=== PATIENT | female | born 1960 | race African-American/Black ===

== ENCOUNTER → 2016-11-22 | Outpatient (CLI) | payer OTHER ==
--- NOTE | 2016-11-22 11:06 | RAD ---
DATE: 11/22/2016 EXAM: DIGITAL SCREEN RT W/CAD HISTORY: Screening. The history of left breast malignancy with subsequent mastectomy is noted COMPARISON: 05/13/2015 This study was interpreted with the benefit of Computerized Aided Detection (CAD). FINDINGS: Breast Density: SCATTERED The breast parenchyma shows scattered fibroglandular densities. Breast parenchyma level B. There are areas of increased density in the periareolar position of the breast. This may reflect summation artifact. A cone compression imaging, an ML view and rolled cc views are suggested. No suspect calcifications are seen. Occasional lymph nodes are noted in the axilla. IMPRESSION: Areas of increased density in the right breast may reflect summation artifact. Additional imaging suggested as outlined BI-RADS CATEGORY: 0 INCOMPLETE: NEED ADDITIONAL IMAGING EVAULATION AND/OR PRIOR MAMMOGRAMS FOR COMPARISON RECOMMENDED FOLLOW-UP: ADD ADDITIONAL IMAGING PQRS compliance statement: Patient information was entered into a reminder system with a target due date soon for the next mammogram. Mammography is a sensitive method for finding small breast cancers, but it does not detect them all and is not a substitute for careful clinical examination. A negative mammogram does not negate a clinically suspicious finding and should not result in delay in biopsying a clinically suspicious abnormality. "Our facility is accredited by the [employer] Mammography [employer]."
== END | disposition home or self-care (01) ==
LOC: MAMMO 07:52
PROVIDERS: ATTEND Nurse Practitioner
DX: Z12.31 Encounter for screening mammogram for malignant neoplasm of breast (principal)
CPT/HCPCS: G0202; 77067

== ENCOUNTER → 2016-11-27 | Outpatient (CLI) | payer OTHER ==
--- NOTE | 2016-11-27 16:18 | RAD ---
DATE: 11/27/2016 EXAM: DIGITAL DIAGNOSTIC RT, BREAST RIGHT HISTORY: Possible abnormality seen on screening COMPARISON: Screening examination 5 days earlier FINDINGS: Breast Density: SCATTERED The breast parenchyma shows scattered fibroglandular densities. Breast parenchyma level B. Multiple additional images were obtained including cone compression views and an ML view and rolled CC views. On the additional images no convincing mass or abnormality is seen. Ultrasound targeted to the periareolar position of the breast was performed. No abnormality is seen IMPRESSION: Probable benign findings. A follow-up mammographic examination of the right breast is suggested in 6 months to further document stability BI-RADS CATEGORY: 3 PROBABLE BENIGN FINDING(S-SHORT INTERVAL FOLLOW-UP SUGGESTED RECOMMENDED FOLLOW-UP: 6M 6 MONTH FOLLOW-UP PQRS compliance statement: Patient information was entered into a reminder system with a target due date 05/28/2017 for the next mammogram. Mammography is a sensitive method for finding small breast cancers, but it does not detect them all and is not a substitute for careful clinical examination. A negative mammogram does not negate a clinically suspicious finding and should not result in delay in biopsying a clinically suspicious abnormality. "Our facility is accredited by the [employer] Mammography [employer]."
== END | disposition home or self-care (01) ==
LOC: MAMMO 14:31
PROVIDERS: ATTEND Nurse Practitioner
DX: R92.8 Other abnormal and inconclusive findings on diagnostic imaging of breast (principal)
CPT/HCPCS: 76641; G0206; 77065

== ENCOUNTER → 2017-05-09 | Outpatient (CLI) | payer OTHER ==
--- NOTE | 2017-05-09 14:44 | RAD ---
DATE: 05/09/2017 EXAM: DIGITAL DIAGNOSTIC RT HISTORY: 6 month follow-up for right breast abnormality seen on previous study. Personal history of left breast cancer with mastectomy. Strong family history of breast cancer. COMPARISON: Previous mammogram from 2017 and 2015. This study was interpreted with the benefit of Computerized Aided Detection (CAD). FINDINGS: Breast Density: SCATTERED The breast parenchyma shows scattered fibroglandular densities. Breast parenchyma level B. The skin and nipples are within normal limits. No suspicious calcifications, spiculated mass or area of architectural distortion. Scattered focal asymmetries are redemonstrated, not significant change when compared to previous study. IMPRESSION: Scattered stable focal asymmetries most likely overlapping fibroglandular tissue. BI-RADS CATEGORY: 3 PROBABLE BENIGN FINDING(S-SHORT INTERVAL FOLLOW-UP SUGGESTED RECOMMENDED FOLLOW-UP: 6M 6 MONTH FOLLOW-UP. Right CC and MLO views in 6 months recommended. PQRS compliance statement: Patient information was entered into a reminder system with a target due date for the next mammogram. Mammography is a sensitive method for finding small breast cancers, but it does not detect them all and is not a substitute for careful clinical examination. A negative mammogram does not negate a clinically suspicious finding and should not result in delay in biopsying a clinically suspicious abnormality. "Our facility is accredited by the [employer] Mammography [employer]."
== END | disposition home or self-care (01) ==
LOC: MAMMO 13:55
PROVIDERS: ATTEND Nurse Practitioner
DX: R92.8 Other abnormal and inconclusive findings on diagnostic imaging of breast (principal); Z85.3 Personal history of malignant neoplasm of breast
CPT/HCPCS: 77065

== ENCOUNTER → 2018-04-22 | Outpatient (CLI) | payer OTHER ==
--- NOTE | 2018-04-22 14:00 | RAD ---
DATE: 04/22/2018 EXAM: DIGITAL DIAGNOSTIC RT HISTORY: Left breast cancer, right breast screening COMPARISON: 05/09/2017, 11/27/2016 This study was interpreted with the benefit of Computerized Aided Detection (CAD). Breast Density: HETERO The breast parenchyma is heterogenously dense, which could reduce sensitivity of mammography. Breast parenchyma level C. FINDINGS: Since the study of 05/09/2017 a right breast implant has been placed. Routine and implant exclusion views were obtained. The fibroglandular pattern has changed following surgery. Overall the fibroglandular opacities are more dense than on the previous study. Cc tomosynthesis imaging of the right breast demonstrates a 7-8mm nodule located posteriorly at the 6:00 location. No other suspicious right breast density or calcifications are seen. IMPRESSION: 1. Interval placement of a right breast implant. 2. Inferior right breast nodule. Sonographic evaluation is planned and will be reported separately. BI-RADS CATEGORY: 0 INCOMPLETE: NEEDS ADDITIONAL IMAGING EVALUATION AND/OR PRIOR MAMMOGRAMS FOR COMPARISON. RECOMMENDED FOLLOW-UP: ADD ADDITIONAL IMAGING PQRS compliance statement: Patient information was entered into a reminder system with a target due date for the next mammogram. Mammography is a sensitive method for finding small breast cancers, but it does not detect them all and is not a substitute for careful clinical examination. A negative mammogram does not negate a clinically suspicious finding and should not result in delay in biopsying a clinically suspicious abnormality. "Our facility is accredited by the [employer] Mammography [employer]."
== END | disposition home or self-care (01) ==
LOC: MAMMO 12:25
PROVIDERS: ATTEND Nurse Practitioner Family
DX: N63.13 Unspecified lump in the right breast, lower outer quadrant (principal); Z85.3 Personal history of malignant neoplasm of breast
CPT/HCPCS: 77065

== ENCOUNTER → 2018-04-24 | Outpatient (CLI) | payer OTHER ==
--- NOTE | 2018-04-24 15:20 | RAD ---
Right breast ultrasound, 04/24/2018: History: Right breast nodule Recent mammograms demonstrated a nodule at the 6:00 location in the right breast. A targeted ultrasound exam of that region was performed. At the 6:00 location approximately 5 cm from the nipple there is a 2 x 4 x 2 mm hypoechoic nodule. There are low level internal echoes without internal vascularity. The appearance suggests a complex cyst. At the 6:30 location approximately 3 cm in the nipple there is a 6 x 5 x 3 mm nodule with slightly irregular margins. It is predominantly hypoechoic and heterogeneous internally. There is no significant posterior acoustic enhancement or shadowing. Considering its size and shape this most likely corresponds to the mammographic abnormality. No other lesion was identified inferiorly in the right breast. IMPRESSION: Suspicious right nodule identified at the 6:30 location sonographically which probably corresponds to the mammographic finding. Ultrasound-guided biopsy is suggested for further evaluation. Note: The patient was notified of our recommendation for biopsy at the time of exam by the instrument technologist, and will follow-up with the ordering physician.
== END | disposition home or self-care (01) ==
LOC: US 13:44
PROVIDERS: ATTEND Nurse Practitioner Family
DX: R92.8 Other abnormal and inconclusive findings on diagnostic imaging of breast (principal)
CPT/HCPCS: 76641

== ENCOUNTER → 2018-10-25 | Outpatient (CLI) | payer OTHER ==
--- NOTE | 2018-10-25 13:44 | RAD ---
DATE: 10/25/2018 EXAM: MAMMO BRANDO DIAG RT HISTORY: Biopsy follow-up. COMPARISON: 05/09/2017 and 04/22/2018 mammographic images of the right breast. This study was interpreted with the benefit of Computerized Aided Detection (CAD). Breast Density: SCATTERED The breast parenchyma shows scattered fibroglandular densities. Breast parenchyma level B. FINDINGS: Right breast biopsy clip at the 6:00 region in the middle one third of the breast is noted. No mass in the interval. No significant change about the site of the biopsy clip marker upon correlation with the previous exam. No suspicious calcification cluster or suspicious distortion In the interval. IMPRESSION: Stable. BI-RADS CATEGORY: 1 NEGATIVE RECOMMENDED FOLLOW-UP: 12M 12 MONTH FOLLOW-UP PQRS compliance statement: Patient information was entered into a reminder system with a target due date in one year for the next mammogram. Mammography is a sensitive method for finding small breast cancers, but it does not detect them all and is not a substitute for careful clinical examination. A negative mammogram does not negate a clinically suspicious finding and should not result in delay in biopsying a clinically suspicious abnormality. "Our facility is accredited by the [employer] Mammography [employer]."
== END | disposition home or self-care (01) ==
LOC: MAMMO 12:39
PROVIDERS: ATTEND Nurse Practitioner Family
DX: N63.13 Unspecified lump in the right breast, lower outer quadrant (principal)
CPT/HCPCS: 77065; G0279; 77061

== ENCOUNTER → 2019-10-31 | Outpatient (CLI) | payer OTHER ==
--- NOTE | 2019-10-31 18:39 | RAD ---
DATE: 10/31/2019 10:50 AM EXAM: MAMMO BRANDO SCREEN RT HISTORY: Screening . Personal history of left mastectomy 2004 personal history of benign right breast biopsy. COMPARISON: 04/22/2018, 05/09/2017. CC and MLO views of the right breast were performed. Breast tomosynthesis was performed in CC and MLO projections. This study was interpreted with the benefit of Computerized Aided Detection (CAD). FINDINGS: Breast Density: SCATTERED The breast parenchyma shows scattered fibroglandular densities. Breast parenchyma level B Biopsy marker at the inferior right breast is newly apparent. Partially imaged subpectoral implant also noted. No suspicious masses, microcalcifications or architectural distortion is present to suggest malignancy. IMPRESSION: No mammographic evidence of malignancy. BI-RADS CATEGORY: 2 BENIGN FINDING(S) RECOMMENDED FOLLOW-UP: 12M 12 MONTH FOLLOW-UP Annual screening mammography is recommended, unless clinically indicated sooner based on symptoms or change in physical exam. PQRS compliance statement: Patient information was entered into a reminder system with a target due date for the next mammogram. Mammography is a sensitive method for finding small breast cancers, but it does not detect them all and is not a substitute for careful clinical examination. A negative mammogram does not negate a clinically suspicious finding and should not result in delay in biopsying a clinically suspicious abnormality. "Our facility is accredited by the [employer] Mammography Program."
== END | disposition home or self-care (01) ==
LOC: MAMMO 10:46
PROVIDERS: ATTEND Nurse Practitioner Family
DX: Z12.31 Encounter for screening mammogram for malignant neoplasm of breast (principal); Z85.3 Personal history of malignant neoplasm of breast
CPT/HCPCS: 77063; 77067

== ENCOUNTER → 2020-11-09 | Outpatient (CLI) | payer OTHER ==
--- NOTE | 2020-11-12 19:09 | RAD ---
DATE: 11/09/2020 EXAM: MG DIGITAL MAMMO SCREENING UNILT+BRANDO HISTORY: Screening. History of left mastectomy COMPARISON: 10/31/2019, 10/25/2018 This study was interpreted with the benefit of Computerized Aided Detection (CAD). Breast Density: The breasts is heterogeneously dense, which may obscure small masses. FINDINGS: There is a retropectoral right breast implant. There is a biopsy clip at 6:00. There is a 1 cm nodule in the far posterior, slightly upper right breast on MLO tomosynthesis view, without defin ite correlation on CC view. This may localize to a 9-10 o'clock tomosynthesis . No suspicious calcifi cations. IMPRESSION: 1 cm nodule far posterior right breast on MLO view, possibly round 9-10 o'clock. Recommen d spot magnification CC and MLO view and ultrasound. BI-RADS CATEGORY: 0 INCOMPLETE: NEEDS ADDITIONAL IMAGING EVALUATION AND/OR PRIOR MAMMOGRAMS FOR DELANEY RISON. RECOMMENDED FOLLOW-UP: ADD ADDITIONAL IMAGING PQRS compliance statement: Patient information was entered into a reminder system with a target due d ate for the next mammogram. Mammography is a sensitive method for finding small breast cancers, but it does not detect them all a nd is not a substitute for careful clinical examination. A negative mammogram does not negate a clin ically suspicious finding and should not result in delay in biopsying a clinically suspicious abnorma lity. "Our facility is accredited by the [employer] Mammography Program." Electronically signed by: Tonia Navarro MD (11/12/2020 7:06 PM) [id number]
== END ==
LOC: MAMMO 14:02
PROVIDERS: ATTEND Nurse Practitioner Family
DX: Z12.31 Encounter for screening mammogram for malignant neoplasm of breast (principal); N63.10 Unspecified lump in the right breast, unspecified quadrant
CPT/HCPCS: 77063; 77067

== ENCOUNTER → 2020-12-06 | Outpatient (CLI) | payer OTHER ==
--- NOTE | 2020-12-06 15:06 | RAD ---
EXAM: Right breast diagnostic mammogram; right breast sonogram. HISTORY: 60-year-old female presents for evaluation of asymmetry within the right breast demonstrated on a mammogram dated 11/09/2020. TECHNIQUE: Full-field digital and spot compression views of the right breast are obtained. Sonographi c imaging targeted to sites of mammographic asymmetry was also performed. COMPARISON: 11/09/2020 BREAST PARENCHYMAL DENSITY: Level C - Heterogeneously dense. FINDINGS: The asymmetry of concern within the posterior 9:00 position of the right breast is less con spicuous with the additional mammographic views. The favors a component of summation artifact. There is no convincing architectural distortion. There are a few punctate benign calcifications. There is a biopsy clip within the inferior right breast. Sonographic imaging of the right breast demonstrates a 4 mm lymph node with fatty hilum at the 9:00 p osition 10 cm from the nipple. There are few additional benign-appearing axillary lymph nodes. No derrick picious sonographic lesion is seen. IMPRESSION: 1. Slight decreased conspicuity of asymmetry within the posterior 9:00 position of the right breast. There is a benign-appearing axillary tail lymph node in this location demonstrated sonographically. N o suspicious sonographic correlate is seen. 2. BI-RADS Category 3: Probably benign finding(s). Precautionary short term follow up with a diagnost ic right breast mammogram in 6 months is recommended. If your mammogram demonstrates that you have dense breast tissue, which could hide abnormalities, and if you have other risk factors for breast cancer that have been identified, you might benefit from s upplemental screening tests that may be suggested by your ordering physician. Dense breast tissue, i n and of itself, is a relatively common condition. This information is not provided to cause undue c oncern, but rather to raise your awareness and to promote discussion with your physician regarding th e presence of other risk factors, in addition to dense breast tissue. A report of your mammography re sults will be sent to you and your physician. You should contact your physician if you have any ques tions or concerns regarding this report. Mammography is a sensitive method for finding small breast cancers, but it does not detect them all a nd is not a substitute for careful clinical examination. A negative mammogram does not negate a clin ically suspicious finding and should not result in delay in biopsying a clinically suspicious abnorma lity. PQRS compliance statement - Patient information was entered into a reminder system with a target due date for the next mammogram. "Our facility is accredited by the [employer] Mammography [employer]." Electronically signed by: Rebecca Reyna MD (12/06/2020 3:03 PM) [id number]
== END ==
LOC: MAMMO 14:01
PROVIDERS: ATTEND Nurse Practitioner Family
DX: N63.11 Unspecified lump in the right breast, upper outer quadrant (principal)
CPT/HCPCS: 76641; 77065

== ENCOUNTER → 2021-06-08 | Outpatient (CLI) | payer OTHER ==
--- NOTE | 2021-06-08 16:30 | RAD ---
EXAM: 1. Unilateral digital diagnostic mammography, right. 2. Right breast ultrasound, complete. HISTORY: Six-month follow-up right breast density. Partial history of right breast cancer status post breast conservation therapy.. TECHNIQUE: Right full field digital images were obtained in CC and MLO projections with tomosynthesis . Computer-aided detection was applied. Sonography of the right entire breast and axilla was also per formed. COMPARISON: 11/09/2020, 12/06/2020. COMPOSITION: B. There are scattered areas of fibroglandular density. FINDINGS: The prior mammographic region of interest is no longer as conspicuous. It appears to be a p arenchymal island on the current examination. A postbiopsy clip and posttreatment architectural disto rtion are again noted medially and inferiorly. A subpectoral implant is partially visualized. On today's sonography, there is no suspicious abnormality. A few subcentimeter clusters of benign-yayo earing cysts are noted. The previously noted 4 mm lymph node at the 9:00 position 10 cm from the nipp le appears stable and benign. There are no suspicious right axillary lymph nodes. BI-RADS CATEGORY 2: Benign. RECOMMENDATION: 1. Resume bilateral surveillance mammography in 6 months. Electronically signed by: Keron Oconnor MD (06/08/2021 4:28 PM) [id number]
== END ==
LOC: MAMMO 14:36
PROVIDERS: ATTEND Nurse Practitioner Family
DX: N63.11 Unspecified lump in the right breast, upper outer quadrant (principal); N60.01 Solitary cyst of right breast
CPT/HCPCS: 76641; 77065; G0279; 77061